=== PATIENT | female | born 1930 | race Caucasian/White ===

== ENCOUNTER 2016-10-28 14:32 | Emergency (ER) | payer MEDICARE, OTHER ==
[~2016-10-28] VITALS: Ht 157.5 cm; Wt 62.6 kg
[~2016-10-28 14:32] MED LIST: ADVAIR; ADVAIR 250-501 EAC1 IH; AMITRYPTYLINE PO; ASPIRIN; CALCIUM + D; CALCIUM + D 6001 TA1 PO; CALCIUM 600 + D; DETROL LA; ESCITALOPRAM OX10 MG PO; FLONASE 0.05% N16 G1; FLONASE16 GM; LEXAPRO PO; LIPITOR; LIPITOR20 MG PO; LORTAB 7.5-5001 TAB PO; METOPROLOL SUCC50 MG PO; MULTI VITAMIN1 EACH PO; MULTI-VITAMIN1 TAB; PULMICORT180 MCG/A1 IN; SINGULAIR; SINGULAIR PO; TOPROL XL PO
== END 2016-10-28 18:25 | disposition home or self-care (01) ==
LOC: CED 14:32
DX: S81.812A Laceration without foreign body, left lower leg, initial encounter (principal); X58.XXXA Exposure to other specified factors, initial encounter; Y92.009 Unspecified place in unspecified non-institutional (private) residence as the place of occurrence of the external cause; Z23 Encounter for immunization
CPT/HCPCS: 12002; 90471; 90715; 94640; 99283